=== PATIENT | male | born 1980 ===

== ENCOUNTER 2018-01-23 17:43 | Emergency (ER) | payer OTHER ==
[2018-01-23 17:52] VITALS: O2SAT 96
[2018-01-23] MEDS ORDERED: Bacitracin 500 Units/gm Oint Foilpak UD TOP ONE (18:30)
[2018-01-23] MEDS ORDERED: Tdap Vaccine 0.5 ml Vial (10-64 yrs) IM ONE ×2 (18:30→18:36)
[2018-01-23] MEDS ORDERED: Lidocaine 2% w Epi 1:200,000 Pf Inj INJ ONE (18:31)
[2018-01-23] MEDS ORDERED: Bacitracin 500 Units/gm Oint Foilpak UD ONE (18:36)
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
[2018-01-23 20:06] VITALS: BP 151/100; PULSE 94; RESP 16; TEMP 98.5
== END 2018-01-23 20:10 | disposition home or self-care (01) ==
LOC: C.ER 17:43
DX: S01.01XA Laceration without foreign body of scalp, initial encounter (principal); Y08.89XA Assault by other specified means, initial encounter; Z23 Encounter for immunization; I10 Essential (primary) hypertension